=== PATIENT | female | born 1940 | race Caucasian/White ===

== ENCOUNTER 2023-11-09 01:29 | Observation (INO) | payer MEDICARE, OTHER, SELFPAY ==
[2023-11-08 18:01] VITALS: BP 158/72
[2023-11-08 18:09] VITALS: BMI 19.5
[2023-11-08 18:31] LABS: % Basophils 0.3 % (0-2); % Eosinophils 0.1 % (0-6); % Immature Granulocytes 0.3 % (0-0.5); % Lymphocytes 11.8 % (20.5-51.1); % Monocytes 4.9 % (1.7-9.3); % Neutrophils 82.6 % (42.2-75.2); Absolute Lymphocytes 1.2 10^3/uL (1.2-3.4); Absolute Monocytes 0.5 10^3/uL (0.1-0.6); Absolute Neutrophils 8.2 10^3/uL (1.4-6.5); Hematocrit 35.9 % (37.0-47.0); Hemoglobin 12.9 g/dL (12.0-16.0); Mean Corp Hgb Conc. 35.9 g/dL (33.0-37.0); Mean Corpuscular Hgb 31.5 pg (27.0-31.0); Mean Corpuscular Volume 87.6 fL (81.0-99.0); Mean Platelet Volume 10.4 fL (7.4-10.4); Nucleated Red Blood Cells % 0 %; Platelet Count 233 10^3/uL (130-400); Red Cell Dist. Width 12.9 % (11.5-14.5); White Blood Cell Count 9.9 10^3/uL (4.8-10.8)
[2023-11-08 18:44] LABS: ALT (SGPT) 20 U/L (0-35); AST (SGOT) 24 U/L (14-36); Albumin 4.5 g/dl (3.5-5.0); Alkaline Phosphatase 100 U/L (38-126); Blood Urea Nitrogen 16 mg/dl (7-17); Calcium 10.3 mg/dl (8.4-10.2); Carbon Dioxide 26 mmol/L (22-30); Chloride 96 mmol/L (98-107); Estimated Creatinine Clearance 51 ml/min; Glucose 123 mg/dl (70-99); Potassium 4.2 mmol/L (3.5-5.1); Sodium 131 mmol/L (135-145); Total Bilirubin 0.7 mg/dl (0.2-1.3); eGFR > 60.00
[2023-11-08 18:55] LABS: Troponin I < 0.012 ng/ml
[2023-11-08 19:00] VITALS: BP 134/68
[2023-11-08] MEDS: ANTIVERT 25 MG PO ×2 (19:17→21:17)
--- NOTE | 2023-11-08 19:19 | ED.GENMED ---
History of Present Illness
General
Chief Complaint: Dizziness
Source: patient, ambulance crew and alf
Exam Limitations: none
Time Seen by Provider: 11/08/23 18:00
Nursing documentation reviewed up to this point in time: agreed with
Travel History
Have you had any contact with someone who has COVID-19?: No
Do you have any symptoms of coronavirus? Fever > 100 degrees, chills, cough, shortness of breath, sore throat, loss of taste or smell, muscle aches, or headache?: No
History of Present Illness
History of Present Illness:
82-year-old female past medical history of hypertension hyperlipidemia presenting to the emergency department today from [facility] with concerns of room spinning dizziness made worse with movement and resolved when sitting
still blood pressure was elevated to the 180s this morning as well but 150s via EMS and here. Also had associated nausea has been able to ambulate. Has had similar symptoms in the past when she was told that she had vertigo
Review of Systems
Review of Systems
Allergies reviewed?: Yes
All Other Systems: ROS reviewed and negative except as documented in HPI and ROS
Phy Exam
Physical Exam
Physical Exam:
GENERAL: Alert , in no apparent distress
EYE: pupils equal and reactive
NECK: Supple, no significant adenopathy.
ENT: o/p clr, mmm.
CARDIAC: Regular rate and rhythm .
LUNGS: Clear breath sounds bilaterally, no acute respiratory distress, no wheezes/rales/rhonchi
ABDOMEN: Soft, without focal tenderness, no r/g, no cvat
NEUROLOGICAL: Alert and oriented, no focal neuro deficits 5 out of 5 upper and lower extremity strength normal sensation with palpating bilaterally normal finger-nose intervention no pronator drift
SKIN: Warm and dry, skin intact.
MUSCULOSKELETAL: No edema, well perfused.
PSYCH: Normal and appropriate interaction.
Course
Orders/Labs/Results
Orders:
Orders
11/08/23 18:02
EKG [Electrocardiogram (*1)] Urgent
Reason for Study: Vertigo / Dizzy
11/08/23 18:03
EKG- Treatment ONCE
11/08/23 18:28
CBC/With Diff [Complete Blood Count/With Diff] Urgent
CMP [Comprehensive Metabolic Panel] Urgent
Troponin I Urgent
11/08/23 18:58
Meclizine [Antivert] 25 mg PO NOW STA
11/08/23 19:12
Urinalysis Reflex To Culture Urgent
Date Specimen was Collected: 11/08/23
Time Specimen was Collected: 19:09
Urine Microscopic Reflex Cult Urgent
11/08/23 19:24
0.9% Sodium Chloride 250 ml [Nss] 250 ml IV BOLUS
11/08/23 21:00
CT Head W/o Iv Contrast Urgent
Comment:
Reason For Exam: off balance
Meclizine [Antivert] 25 mg PO NOW STA
Abnormal Lab Results
11/08/23 11/08/23
18:28 19:12
RBC 4.10 L 10^6/uL
(4.20-5.40)
Hct 35.9 L %
(37.0-47.0)
MCH 31.5 H pg
(27.0-31.0)
Absolute Neuts (auto) 8.2 H 10^3/uL
(1.4-6.5)
Neutrophils % 82.6 H %
(42.2-75.2)
Lymphocytes % 11.8 L %
(20.5-51.1)
Sodium 131 L mmol/L
(135-145)
Chloride 96 L mmol/L
(98-107)
Glucose 123 H mg/dl
(70-99)
Calcium 10.3 H mg/dl
(8.4-10.2)
Leukocyte Esterase Rfl Trace A
(Negative)
11/08/23 18:28
11/08/23 18:28
Vital Signs
Initial and Last Documented VS:
Initial Vital Signs
Temp Pulse Resp BP Pulse Ox
98.3 F 83 18 158/72 97
11/08/23 18:01 11/08/23 18:01 11/08/23 18:01 11/08/23 18:01 11/08/23 18:01
Last Documented Vital Signs
Temp Pulse Resp BP Pulse Ox
98.3 F 71 18 125/61 96
11/08/23 18:01 11/08/23 22:49 11/08/23 22:49 11/09/23 01:00 11/09/23 01:00
MDM/Problems Addressed
MDM/Problems Addressed:
82-year-old female presenting to the emergency department today with concerns of a spinning dizziness starting this morning also blood pressure elevation to 180s but 150s here and en route. On arrival normal neurologic evaluation patient generally
well-appearing no acute distress asymptomatic at rest send unlikely be strokelike process considering only with movement and complete resolve once sitting still also able to ambulate. Labs showing white hyponatremia otherwise normal EKG troponin.
Patient given dose of meclizine patient claims to have some mild improvement in when walking felt unsteady given additional dose of meclizine additionally CT scan was ordered considering ongoing symptoms. CT scan without emergent findings labs
unremarkable vital signs normal throughout ER stay patient again felt unsteady on her feet concerning this plan to admit for monitoring overnight and reassessment in the morning.
*Critical Care Note
Total Time (30-74mins, 75-104mins- exclusive of procedures): Not Applicable
ED Attending Note
-
Portions of this chart may have been created with voice recognition software.� Occasional wrong word or��sound alike� substitutions may have occurred due to the inherent limitations of voice recognition software.
Discharge Plan
Departure
Patient Disposition: Admit
Date of Disposition: 11/09/23
Time of Disposition: 01:19
Admit to: Telemetry
Admit to doctor: Htay
Presentation/result/management discussed w/ accepting MD/DO: Hospitalist
Patient with high blood pressure during this ER visit?: No
Condition: Good
Covid-19: Not Applicable
Discharge Problem:
Dizziness, Ambulatory dysfunction
Referrals:
Marc Vogel MD [Family Provider] -
Interventions
Interventions:
*Risk Screen - Suicide Last Done: 11/08/23 18:06
*General Assessment Last Done: 11/08/23 18:06
*Neglect/Abuse Screening Last Done: 11/08/23 18:06
ED- Fall Risk Assessment Last Done: 11/08/23 19:47
*ED COVID-19 Vaccine History Last Done: 11/08/23 18:09
ED- Neurological Assessment Last Done: 11/08/23 19:47
ED- Cardiac Assessment Last Done: 11/08/23 19:47
ED Swallowing Screen Last Done: 11/08/23 22:04
Discharge Date and Time
Print Language: DANISH
[2023-11-08 19:34] LABS: Urine Albumin Negative (Neg - Trace); Urine Bilirubin Negative (Negative); Urine Character Clear (Clear); Urine Color Yellow; Urine Glucose Negative (Negative); Urine Ketone Negative (Negative); Urine Leukocyte Trace (Negative); Urine Nitrite Negative (Negative); Urine Occult Blood Negative (Negative); Urine Urobilinogen Negative (Neg - 1+); Urine pH 6.5 (5.0-9.0)
[2023-11-08] MEDS: NSS 250 IV (19:37)
[2023-11-08 20:00] VITALS: BP 144/62
[2023-11-08 20:15] LABS: Urine White Cell 0-2 /HPF (0-5)
[2023-11-08 21:47] VITALS: BP 134/65
[2023-11-08 22:00] VITALS: BP 134/66
[2023-11-08 23:03] VITALS: BP 129/54
[2023-11-09] VITALS (7 sets, daily range): BP systolic 125–162; BP diastolic 61–95; PULSE 78–90; BMI 18.7
--- NOTE | 2023-11-09 01:10 | HPS.HSE ---
Family Physician
-
Family Physician: Marc Vogel
Chief Complaint
-
dizzy spells
History of Present Illness
82F from independent living HX HTN, HLD seen at ER for evalaition of dizziness.
Dizziness
- similar symptom in the past and was told vertigo
- acute onset
- described as spinning objects around her
- worse with movement and resolved when sitting
- associated with nausea. Denied vomiting
- denied MARIO
- denied falls
- denied presyncope
- associated with unsteadiness on standing up
- Independent living resident [facility]
Report elevated SBP to 180 in the morning
- per EMS BP was 150
Medical History
Past Medical History
Past Medical History: Reports HTN, Hypercholesterolemia and Other (vertigo )
Past Surgical History: Reports Other
Social History
Tobacco: Non-smoker
Alcohol: None
Drug: None
Living: Other (Indepedent living resident [facility] )
Family History
Family History: Not pertinent
Allergies / Home Medications
Allergies reflects when Allergies were last updated in [employer].
Home Medications with original date entered in [employer]
Allergy/Medication List:
Allergies
Allergy/AdvReac Type Severity Reaction Status Date / Time
adhesive tape Allergy Mild Rash Verified 11/08/23 17:58
bacitracin Allergy Mild Rash Verified 11/08/23 17:58
[From Polysporin(bacitracin
base)]
neomycin Allergy Mild Rash Verified 11/08/23 17:58
[From Neosporin
([id number])]
polymyxin B Allergy Mild Rash Verified 11/08/23 17:58
[From Polysporin(bacitracin
base)]
Review of Systems
-
Constitutional: Reports No Symptoms
EENT: Reports No Symptoms
Respiratory: Reports No Symptoms
Cardiac: Reports No Symptoms
Abdomen/GI: Reports No Symptoms
: Reports No Symptoms
Musculoskeletal: Reports No Symptoms
Skin: Reports No Symptoms
Neurological: Reports See HPI and Dizzy; Denies Weakness or Numbness
Endocrine: Reports No Symptoms
Hematologic/Lymphatic: Reports No Symptoms
Psych: Reports No Symptoms
Physical Exam
Vital Signs
Vital Signs
Temp Pulse Resp BP Pulse Ox
98.3 F 71 18 129/63 97
11/08/23 18:01 11/08/23 22:49 11/08/23 22:49 11/09/23 00:00 11/09/23 00:45
Physical Exam
General: No Apparent Distress and Comfortable
HEENT: NormoCephalic, Anicteric and Moist mucous membranes
Respiratory: Clear
Cardiac: S1/S2 and Regular Rhythm
Breast: Deferred by me
GI: Soft
Rectal: Deferred by Provider
Genito-urinary: Deferred by me
Musculoskeletal: No Edema
Skin: Warm and Dry
Neuro: AO x 3, Nonfocal/grossly intact and Other (no nystagmus, symmetric fine motor skills , symmetric FNTs , symmetric with coordination )
Psych: Calm
Laboratory Results
-
11/08/23 18:28
11/08/23 18:28
Laboratory Results
Total Bilirubin 0.7 mg/dl (0.2-1.3) 11/08/23 18:28
AST 24 U/L (14-36) 11/08/23 18:28
ALT 20 U/L (0-35) 11/08/23 18:28
Alkaline Phosphatase 100 U/L (38-126) 11/08/23 18:28
Troponin I < 0.012 ng/ml 11/08/23 18:28
Data Reviewed
-
CT Scan: Report Reviewed by me
Medical Tests (Nuc Med, Echo, EKG etc): Report Reviewed by me
Lab Data: Labs Reviewed by me
Impression/Plan
-
Data
nl CBC
Na 131 Cl 96
nl Cr
BG 123
NEG TPNI
NEG UA
EKG: NSR, nl EKG
HCT: No acute intracranial pathology
No prior admission to
ASSESSMENT & PLAN
Pending Rx reconciliation
Acute recurrent vertigo; likely peripheral origin rather than central
Improving vertigo at ER but still unsteadiness with ambulation thus fall risk
Suspect mildly dehydrated
DDX : BPPV
Non focal weakness. Symmetric with coordination
- s/p IVF 250 cc only - will cont gentle IVF
- s/p 2 doses of IV Meclizine
- ortho VSS
- Fall precaution
- PT/OT
- Neuro consult
Essential HTN
- add IV Hydralazine PRN while pending Rx reconcilliation
HLD
DVT Px: LMWH
Code: Full
Obs TLM
--- NOTE | 2023-11-09 02:10 | PTCARENOTE ---
Pt arrived from ED via stretcher, oob x1 assist to bed. Pt states 'I don't feel dizzy, I just feel wobbly while walking.' denies pain or nausea. oriented to room. call frazier within reach.
[2023-11-09] MEDS: NSS 1000 IV (02:35)
[2023-11-09 07:18] LABS: Blood Urea Nitrogen 12 mg/dl (7-17); Calcium 10.1 mg/dl (8.4-10.2); Carbon Dioxide 25 mmol/L (22-30); Chloride 101 mmol/L (98-107); Estimated Creatinine Clearance 49 ml/min; Glucose 103 mg/dl (70-99); Potassium 3.6 mmol/L (3.5-5.1); Sodium 136 mmol/L (135-145); eGFR > 60.00
--- NOTE | 2023-11-09 07:58 | CON.NEURO4 ---
Consultation - Neurology 4
-
CONSULTING PHYSICIAN: Aime Nelson
REFERRING PHYSICIAN: Hospitalist
DICTATED BY: Aime Nelson
DATE/TIME OF REQUEST: 11/09/23
DATE/TIME OF CONSULTATION: 11/09/23
Reason for Consultation: Dizziness
History of Present Illness:
Patient is an 82-year-old woman with a past medical history of hypertension and hyperlipidemia who woke in the morning with dizziness. Reports there was some degree of a room spinning sensation since over several hours. At this point does seem to
have improved. Reports that she had high blood pressure in the morning when she took was around 180 was 150 for EMS before being brought into the ER. Patient denies any dysarthria dysphagia unilateral weakness or paresthesia double vision or
headache. No history of TIA stroke or coronary events. She does relate a history of migraine headache without aura when she was younger associated with her menstrual cycle. Does not take antiplatelet chronically. No hearing changes including any
tinnitus or hearing loss.
Past Medical History: Hypertension, hyperlipidemia
Surgical History: None
Family History: Reviewed and non-contributory
Social History: Retired, lives at independent living at [facility], no alcohol or tobacco
Review of Symptoms:
Patient denies any fever, headache, chest pain, shortness of breath, GI or symptoms.
Physical Exam:
Well-appearing elderly woman no signs of head or neck trauma eyes are clear oropharynx is clear neck supple no mass full range of motion, heart rate regular no murmur appreciated, breathing unlabored no wheezing, abdomen soft nontender lower
extremity edema seen
Neurologic Examination:
The patient is awake, alert and oriented x 3. She is able to follow commands and answer questions appropriately. There is no aphasia or dysarthria. On cranial nerve assessment, pupils are 3 mm bilateral, round and reactive to light and
accommodation. Visual figueredo are full. Extraocular movements are intact. Small amount rightward beating nystagmus on right gaze, none seen on left gaze. Facial sensations are intact and bilaterally symmetrical, there is no facial asymmetry. Hearing
is intact bilaterally to normal conversation volume. Tongue palate and uvula are midline. Sternocleidomastoid strengths are full bilaterally. Motor strengths are 5/5 bilateral upper and lower extremities on medical research [place] scale. There is
no drift or involuntary movement noted. Deep tendon reflexes are 2+ bilateral upper and lower extremities and Babinski is absent bilaterally. Sensations of pain, touch, temperature and vibration are intact and bilaterally symmetrical. There was no
extinction noted on double simultaneous stimulation. Coordination is intact by finger to nose bilaterally.
Neuro Imaging:CT head non contrast unremarkable
Impressions
1. Dizziness, high suspicion for either BPPV or blood pressure related. Exam was not strongly supportive of vestibular neuritis but this remains in differential. Very low suspicion for ischemic stroke.
2. Chronic hypertension, treated
Recommendations:
1. As needed meclizine, monitor for drowsiness
2. PT OT evaluations vestibular therapy
3. Goal normal blood pressure would encourage blood pressure checks every day to every other day at home
4. Not seeing indication for MRI of the brain
5. Continue medications for hyperlipidemia and hypertension
6. Check orthostatic vital signs
Discussed patient care with: Patient
[2023-11-09] MEDS: ZESTRIL 10 MG PO (08:24)
[2023-11-09] MEDS: PROTONIX 20 MG PO (08:24)
--- NOTE | 2023-11-09 11:42 | W.PN.HOSP.TC ---
Today's Communication/Plan
-
Discharge
Assessment / Plan
Assessment / Plan
Gen-AAOx3, NAD
HEENT-NC, AT, anicteric, clear oral mm
Neck-supple
CV-reg, no M, +S1/S2
Lungs-clear B/L
Abd-soft, NT, ND
Ext-no edema
Musculoskeletal-no cyanosis, clubbing
Skin-warm and dry
Neuro-grossly non-focal, no nystagmus
Psych-calm, cooperative
Vertigo -possibly BPPV. Symptoms improved. Appreciate neurology input. Outpatient vestibular rehab. Meclizine as needed.
Hyponatremia -possibly due to hydrochlorothiazide. Discontinued. Continue lisinopril. Discussed with patient. Sodium improved.
Essential hypertension -stable.
Hyperlipidemia -continue atorvastatin.
Full code
Dispo -medically stable for discharge. Outpatient follow-up. She lives in [facility].
Anticipated Discharge: Today
Subjective/Interval History
-
Date of Service: November 09, 2023
Patient seen and examined. Feeling better currently, no complaints.
Objective Data
-
Labs:
Laboratory Results
11/09/23
06:33
Sodium 136
Potassium 3.6
Chloride 101
Carbon Dioxide 25
BUN 12
Creatinine 0.7
Glucose 103 H
Calcium 10.1
Vital Signs:
Vital Signs
Temp Pulse Resp BP Pulse Ox
99.0 F 74 16 132/70 96
11/09/23 11:01 11/09/23 11:01 11/09/23 11:01 11/09/23 11:01 11/09/23 11:01
Review of Systems
-
History Source: Patient
All other systems: Reviewed and negative
--- NOTE | 2023-11-09 11:47 | W.DS.TRANS ---
DC Summary - Laboratory Supervisor
-
Discharge Instructions:
Discharge Diagnosis/Procedures Vertigo, hyponatremia
Diet Low Cholesterol,Low Fat
Activity As tolerated
Driving Restrictions As prior to admission
Bathing Restrictions None
Instructions:
Stand-Alone Forms:
Changes to Home Medications: Yes
Discharge Medications:
DC Medications w/original date entered in [facility]
atorvastatin 20 mg tablet 20 mg PO QPM High Cholesterol 11/09/23
lisinopril 20 mg tablet 20 mg PO DAILY #30 tabs 11/09/23
meclizine 25 mg tablet 25 mg PO Q8HPRN PRN vertigo #15 tabs 11/09/23
pantoprazole 20 mg tablet,delayed release 20 mg PO DAILY Gastrointestinal Issue 11/09/23
Home Medication Changes
Stop hydrochlorothiazide
Pending Results: No
== END 2023-11-09 13:33 | disposition home or self-care (01) ==
LOC: 2 SOUTH 01:29
PROVIDERS: Physician Assistant; ADMITTING PHYSICIAN Internal Medicine; ATTENDING PHYSICIAN Hospitalist; CONSULT PHYSICIAN Student in an Organized Health Care Education/Training Program; EMERGENCY PHYSICIAN Emergency Medicine; FAMILY PHYSICIAN Internal Medicine
DX: R42 Dizziness and giddiness (principal); I10 Essential (primary) hypertension; E78.00 Pure hypercholesterolemia, unspecified; R11.0 Nausea; E87.1 Hypo-osmolality and hyponatremia; R26.2 Difficulty in walking, not elsewhere classified; Z60.2 Problems related to living alone; Z88.1 Allergy status to other antibiotic agents; Z88.8 Allergy status to other drugs, medicaments and biological substances; Z91.048 Other nonmedicinal substance allergy status
CPT/HCPCS: 70450; 80048; 80053; 81003; 81015; 84484; 85025; 93005; 96360; 97162; 97166; 99285; G0378